=== PATIENT | female | born 1960 | race Two or more races ===

== ENCOUNTER 2018-09-13 23:17 | Inpatient (IN) | payer OTHER ==
[~2018-09-13] VITALS: Ht 149.9 cm; Wt 108.9 kg
== END 2018-09-22 20:18 | disposition home or self-care (01) | DRG 603 ==
LOC: ER 23:17 → MEDJ 09-14 14:30
PROVIDERS: ADMIT Internal Medicine
PROC: B246ZZZ Ultrasonography of Right and Left Heart (ICD-10-PCS; principal; 2018-09-15)
PROC: 3E0F7GC Introduction of Other Therapeutic Substance into Respiratory Tract, Via Natural or Artificial Opening (ICD-10-PCS; 2018-09-15)
DX: L03.116 Cellulitis of left lower limb (principal); L03.115 Cellulitis of right lower limb; J45.909 Unspecified asthma, uncomplicated; E03.8 Other specified hypothyroidism; E66.8 Other obesity

== ENCOUNTER 2019-10-09 12:04 | Inpatient (IN) | payer OTHER ==
[~2019-10-09] VITALS: Ht 149.9 cm; Wt 98.0 kg
[2019-10-09] MEDS ORDERED: ASPIR 8181 MG (12:21)
[2019-10-09] MEDS ORDERED: MOMETASONE FURO15 G1 (12:21)
[2019-10-09] MEDS ORDERED: XYZAL5 MG (12:22)
[2019-10-09] MEDS ORDERED: SINGULAIR 10MG10 MG (12:22)
[2019-10-09] MEDS ORDERED: DAFLONEX-XL 11300 MG (12:23)
[2019-10-09] MEDS ORDERED: GLUCOTROL XL5 MG (12:23)
[2019-10-09] MEDS ORDERED: SYNTHROID100 MCG (12:23)
[2019-10-09] MEDS ORDERED: PREDNISOLO15 MG/5 ML (12:24)
[2019-10-30] MEDS ORDERED: MEDROLPACK PO (12:54)
== END 2019-10-30 19:05 | disposition home or self-care (01) | DRG 193 ==
LOC: ER 12:04 → MEDJ 18:28 → SURH 10-27 03:31
PROVIDERS: ADMIT Internal Medicine
PROC: 8E0ZXY6 Isolation (ICD-10-PCS; principal; 2019-10-09)
PROC: 3E0F7GC Introduction of Other Therapeutic Substance into Respiratory Tract, Via Natural or Artificial Opening (ICD-10-PCS; 2019-10-09)
PROC: 4A12X4Z Monitoring of Cardiac Electrical Activity, External Approach (ICD-10-PCS; 2019-10-10)
PROC: 30233N1 Transfusion of Nonautologous Red Blood Cells into Peripheral Vein, Percutaneous Approach (ICD-10-PCS; 2019-10-14)
DX: J18.9 Pneumonia, unspecified organism (principal); J96.91 Respiratory failure, unspecified with hypoxia; J96.92 Respiratory failure, unspecified with hypercapnia; J45.901 Unspecified asthma with (acute) exacerbation; R04.2 Hemoptysis; E87.1 Hypo-osmolality and hyponatremia; E11.9 Type 2 diabetes mellitus without complications; E66.01 Morbid (severe) obesity due to excess calories; E03.9 Hypothyroidism, unspecified; Z20.828 Contact with and (suspected) exposure to other viral communicable diseases; D64.9 Anemia, unspecified

== ENCOUNTER 2019-11-02 21:43 | Emergency (ER) | payer OTHER ==
[~2019-11-02] VITALS: Ht 149.9 cm; Wt 98.9 kg
[~2019-11-02 21:43] MED LIST: ASPIR 8181 MG; DAFLONEX-XL 11300 MG; GLUCOTROL XL5 MG; MEDROLPACK PO; MOMETASONE FURO15 G1; PREDNISOLO15 MG/5 ML; SINGULAIR 10MG10 MG; SYNTHROID100 MCG; XYZAL5 MG
== END 2019-11-03 00:45 | disposition home or self-care (01) ==
LOC: ER 21:43
DX: R60.0 Localized edema (principal)

== ENCOUNTER 2019-11-12 12:18 | Emergency (ER) | payer OTHER ==
[~2019-11-12] VITALS: Ht 149.9 cm; Wt 98.9 kg
[2019-11-12] MEDS ORDERED: KETO10TA2 PO (15:49)
== END 2019-11-12 15:51 | disposition home or self-care (01) ==
LOC: ER 12:18
DX: R60.0 Localized edema (principal); S90.32XS Contusion of left foot, sequela; W22.8XXS Striking against or struck by other objects, sequela

== ENCOUNTER 2020-02-21 09:08 | Outpatient (CLI) | payer OTHER ==
[~2020-02-21 09:08] MED LIST changes: +KETO10TA2 PO
== END 2020-02-21 09:19 | disposition home or self-care (01) ==
LOC: RX STUDY 09:08
PROVIDERS: ATTEND Internal Medicine Pulmonary Disease
DX: R13.19 Other dysphagia (principal)

== ENCOUNTER 2022-10-29 09:54 | Emergency (ER) | payer OTHER ==
[~2022-10-29] VITALS: Ht 147.3 cm; Wt 92.5 kg
[2022-10-29] MEDS ORDERED: COZAAR25 MG (10:26)
[2022-10-29] MEDS ORDERED: LASIX20 MG (10:26)
[2022-10-29] MEDS ORDERED: SYMBICORT 16010.2 GM IH (10:27)
== END 2022-10-29 13:20 | disposition home or self-care (01) ==
LOC: ER 09:54
DX: N39.0 Urinary tract infection, site not specified (principal); I10 Essential (primary) hypertension; E03.9 Hypothyroidism, unspecified; J45.909 Unspecified asthma, uncomplicated; E11.9 Type 2 diabetes mellitus without complications; Z79.84 Long term (current) use of oral hypoglycemic drugs

== ENCOUNTER 2022-11-12 09:56 | Emergency (ER) | payer OTHER ==
[~2022-11-12] VITALS: Ht 149.9 cm; Wt 92.5 kg
[~2022-11-12 09:56] MED LIST changes: +COZAAR25 MG; +LASIX20 MG; +SYMBICORT 16010.2 GM IH
[2022-11-12] MEDS ORDERED: GYNE-LOTRIMIN21 GM TOP (12:09)
== END 2022-11-12 12:52 | disposition home or self-care (01) ==
LOC: ER 09:56
DX: B37.31 Acute candidiasis of vulva and vagina (principal); N39.0 Urinary tract infection, site not specified; I10 Essential (primary) hypertension; E03.9 Hypothyroidism, unspecified